=== PATIENT | female | born 1950 | race Caucasian/White ===

== ENCOUNTER → 2019-08-19 07:40 | Outpatient (BNVA) | payer MEDICARE, SELFPAY | PROVIDERS: Family Provider Family Medicine; PCP Family Medicine; Visit Provider Nurse Practitioner | DX: F33.2 Major depressive disorder, recurrent severe without psychotic features (principal) | CPT/HCPCS: 99214 ==

== ENCOUNTER → 2020-07-13 07:32 | Outpatient (BNVA) | payer MEDICARE, SELFPAY | PROVIDERS: Family Provider Family Medicine; PCP Family Medicine; Visit Provider Nurse Practitioner | DX: F33.2 Major depressive disorder, recurrent severe without psychotic features (principal); G25.81 Restless legs syndrome; F17.210 Nicotine dependence, cigarettes, uncomplicated | CPT/HCPCS: 99214 ==

== ENCOUNTER 2020-11-16 08:41 | Outpatient (CLI) | payer MEDICARE, SELFPAY ==
--- NOTE | 2020-11-16 08:51 | MM_ITS ---
WS: [id number] Bilateral screening digital mammogram, 11/16/2020 Clinical Data: SCREENING Comparison: 06/03/2008, 06/10/2007. Findings: The breast parenchymal pattern shows heterogeneous density No spiculated masses or clustered calcific ations are seen. There are no secondary signs of carcinoma. MM/[place] [id number] Impression: 1. Negative bilateral mammogram unchanged. 2. Recommend annual screening mammograms. BIRADS: 1-Negative FOLLOW UP: 1 Year Follow-up The CAD wrap checker was used.
== END 2020-11-16 08:42 | disposition home or self-care (01) ==
LOC: RADSHAW 08:47
PROVIDERS: PCP Family Medicine; Visit Provider Family Medicine
DX: Z12.31 Encounter for screening mammogram for malignant neoplasm of breast (principal)
CPT/HCPCS: 77067

== ENCOUNTER → 2021-06-07 08:37 | Outpatient (BNVA) | payer MEDICARE, SELFPAY | PROVIDERS: PCP Family Medicine; Visit Provider Nurse Practitioner | DX: F10.21 Alcohol dependence, in remission (principal); F33.2 Major depressive disorder, recurrent severe without psychotic features; G25.81 Restless legs syndrome; F17.210 Nicotine dependence, cigarettes, uncomplicated | CPT/HCPCS: 99214 ==

== ENCOUNTER 2021-06-16 00:48 | Emergency (ER) | payer MEDICARE, SELFPAY ==
[2021-06-16 00:50] VITALS: PULSE 70; RESP 18; TEMP 36.7; O2SAT 97; BMI 17.2
--- NOTE | 2021-06-16 00:50 | ECG_ITS ---
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 Measurements Intervals [facility] Rate: 71 P: 83 VT: 150 QRS: 24 QRSD: 94 T: 74 QT: 351 QTc: 383 Interpretive Statements SINUS RHYTHM POSSIBLE LEFT ATRIAL ENLARGEMENT [-0.1mV P-WAVE IN V1/V2] INCOMPLETE RIGHT BUNDLE BRANCH BLOCK [90+ ms QRS DURATION, TERMINAL R IN V1/V2, 40+ ms S IN I/aVL/V4/V5/V6] NONSPECIFIC T-WAVE ABNORMALITY No previous ECG available for comparison Electronically Signed On 06-16-2021 10:55:47 CDT by Paul Ravi M.D. [email or web address]
--- NOTE | 2021-06-16 00:50 | XRR_ITS ---
PROCEDURE INFORMATION: Exam: XR Chest Exam date and time: 06/16/2021 12:58 AM Age: 71 years old Clinical indication: Other: Syncope; Patient HX: Syncopal episode. C/O general fatigue TECHNIQUE: Imaging protocol: XR of the chest. Views: 1 view. COMPARISON: CT Abdomen/Pelvis [facility] [id number] 11/02/2015 9:38 AM FINDINGS: Lungs: Emphysematous lung changes. Negative for space consolidation. Pleural spaces: Unremarkable. No pleural effusion. No pneumothorax. Heart/Mediastinum: Unremarkable. No cardiomegaly. Bones/joints: Unremarkable. XR/XR chest 1V portable [id number] IMPRESSION: Negative exam. No acute chest abnormality identified.
[2021-06-16 00:57] LABS: Basophils % 0.6 %; Eosinophils # 0.1 10^3/uL (0.0-0.8); Eosinophils % 1.6 %; Hematocrit 40.3 % (37.0-47.0); Hemoglobin 12.1 g/dL (11.5-15.3); Lymphocytes # 1.7 10^3/uL (0.8-4.8); Lymphocytes % 23.7 %; Mean Corpuscular Hemoglobin 32.1 pg (28.0-34.0); Mean Corpuscular Volume 106.9 fl (81-99); Mean Platelet Volume 12.3 fL (7.4-10.4); Monocytes # 0.5 10^3/uL (0.2-0.9); Monocytes % 6.8 %; Neutrophils # 4.75 10^3/uL (1.8-7.7); Nucleated Red Blood Cells % 0 %; Platelet Count 97 10^3/cmm (130-400); Red Blood Count 3.77 10^6/uL (4.1-5.3); White Blood Count 7.1 10^3/uL (4.0-10.0)
[2021-06-16 00:58] VITALS: BP 167/83; PULSE 72; RESP 20; O2SAT 98
--- NOTE | 2021-06-16 00:59 | ED_ITS ---
HPI - Syncope General: Chief Complaint: Syncope Stated Complaint: SYNCOPAL EPISODE Time Seen by Provider: 06/16/21 00:49 Source: patient and EMS Mode of arrival: EMS Limitations: no limitations History of Present Illness: 71-year-old female states that she got her COVID shot yesterday and states that since then she been having some body aches and not feeling well. States that she had gotten up multiple times tonight last time she got up she felt dizzy and fell like she cannot pass out and then did fall and hit her chin on the ground she states she never passed out states that she is just felt weak she denies any fevers denies any chest pain denies any shortness of breath Associated symptoms: Deny abdominal pain, chest pain, fever(s), headache(s) or nausea Review of Systems Const: Denies: fever(s), chills, body aches or change in appetite Eyes: Denies: blurry vision or eye discomfort ENMT: Denies: throat pain or dental pain Card: Denies: chest pain Resp: Denies: dyspnea GI: Denies: abdominal pain, nausea, vomiting or diarrhea : Denies: dysuria Musc: Denies: neck pain or back pain Skin/Breast: Denies: rash Neuro: Denies: headache(s) Psych: Denies: depression Logan/Lymph: Denies: easy bruising All/Imm: Denies: urticaria PFS ED PFSH: Medical History Alcohol dependence, in remission Major depressive disorder, recurrent severe without psychotic features Nicotine dependence, cigarettes, uncomplicated Restless legs syndrome Physical Exam Const: COMMON NORMALS: no acute distress, patient oriented x3 and healthy appearing HENMT: COMMON NORMALS: normocephalic and atraumatic HEAD & SCALP: normocephalic and atraumatic Eye: COMMON NORMALS: Equal, round and reactive pupils present and EOMs intact bilaterally PUPIL: Yes Equal, round and reactive pupils present Neck/C-Spine: COMMON NORMALS: full ROM and supple Chest: COMMONS NORMALS: normal inspection of the chest and normal palpation of entire chest wall Resp: COMMON NORMALS: normal respiratory effort, No retractions, No use of accessory muscles and clear to auscultation bilaterally AUSCULTATION: clear to auscultation bilaterally Cardio: COMMON NORMALS: regular rate, regular rhythm and No murmurs present (Cardio) RATE: regular rate RHYTHM: regular rhythm GI: COMMON NORMALS: Normal to inspection, nondistended, normoactive bowel sounds present, Soft to palpation, non-tender and no masses PALPATION: Yes Soft to palpation Extremity: COMMON NORMALS: normal to inspection and full ROM Neuro: COMMON NORMALS: patient oriented x3, moves all extremities and no focal motor deficits Psych: COMMON NORMALS: mental status grossly normal, Normal thought process present and cooperative THOUGHT PROCESS: Normal thought process present Skin: COMMON NORMALS: no rashes or lesions noted and no wounds GENERAL SKIN EXAM: no rashes or lesions noted Course Vital Signs: Vital signs: Vital Signs Temperature 98.1 F 06/16/21 00:50 Pulse Rate 72 06/16/21 01:58 Respiratory Rate 18 06/16/21 01:58 Blood Pressure 158/76 06/16/21 01:58 Pulse Oximetry 98 06/16/21 01:58 MDM - Syncope Medical Decision Making Patient presents here with a syncopal event. Patient feels much improved here i s can be related to her recent vaccine she is no signs of pulmonary embolism she had no chest pain she did hit her chin had a mild head pain her CT head is normal blood works normal she is follow-up with PCP and return if worsening she understands agrees plan. Lab Data : 06/16/21 00:50 06/16/21 00:50 Radiology Impressions Chest X-Ray 06/16/21 00:50 IMPRESSION: Negative exam. No acute chest abnormality identified. Head CT 06/16/21 02:08 IMPRESSION: No acute intracranial findings. Laboratory Results WBC 7.1 10^3/uL (4.0-10.0) 06/16/21 00:50 RBC 3.77 10^6/uL (4.1-5.3) L 06/16/21 00:50 Hgb 12.1 g/dL (11.5-15.3) 06/16/21 00:50 Hct 40.3 % (37.0-47.0) 06/16/21 00:50 MCV 106.9 fl (81-99) H 06/16/21 00:50 MCH 32.1 pg (28.0-34.0) 06/16/21 00:50 MCHC 30.0 g/dL (30.0-36.0) 06/16/21 00:50 RDW 13.0 % (12.1-15.1) 06/16/21 00:50 Plt Count 97 10^3/cmm (130-400) L 06/16/21 00:50 MPV 12.3 fL (7.4-10.4) H 06/16/21 00:50 Neut % (Auto) 67.0 % 06/16/21 00:50 Lymph % (Auto) 23.7 % 06/16/21 00:50 [place] % (Auto) 6.8 % 06/16/21 00:50 Eos % (Auto) 1.6 % 06/16/21 00:50 Baso % (Auto) 0.6 % 06/16/21 00:50 Neut # (Auto) 4.75 10^3/uL (1.8-7.7) 06/16/21 00:50 Lymph # (Auto) 1.7 10^3/uL (0.8-4.8) 06/16/21 00:50 [place] # (Auto) 0.5 10^3/uL (0.2-0.9) 06/16/21 00:50 Eos # (Auto) 0.1 10^3/uL (0.0-0.8) 06/16/21 00:50 Baso # (Auto) 0.0 10^3/uL (0.0-0.1) 06/16/21 00:50 Nucleated RBC % (auto) 0 % 06/16/21 00:50 Nucleated RBCs # 0.0 /100WBC 06/16/21 00:50 Sodium 139 mmol/L (136-145) 06/16/21 00:50 Potassium 3.7 mmol/L (3.5-5.1) 06/16/21 00:50 Chloride 108 mmol/L (98-107) H 06/16/21 00:50 Carbon Dioxide 22 mmol/L (22-29) 06/16/21 00:50 Anion Gap 12.7 (5-19) 06/16/21 00:50 BUN 12 mg/dL (8-23) 06/16/21 00:50 Creatinine 1.1 mg/dL (0.5-0.9) H 06/16/21 00:50 GFR Calculation Not Reportable 06/16/21 00:50 Glucose 118 mg/dL (65-115) H 06/16/21 00:50 Calculated Osmolality 289 mOsm/kg (285-295) 06/16/21 00:50 Calcium 9.0 mg/dL (8.5-10.5) 06/16/21 00:50 Total Bilirubin 0.2 mg/dL (0.15-1.2) 06/16/21 00:50 AST 18 U/L (0-32) 06/16/21 00:50 ALT 10 U/L (0-33) 06/16/21 00:50 Alkaline Phosphatase 92 IU/L (35-105) 06/16/21 00:50 Total Protein 5.7 g/dL (6.6-8.7) L 06/16/21 00:50 Albumin 4.0 g/dL (3.5-5.2) 06/16/21 00:50 Globulin 1.7 g/dL (1.3-4.6) 06/16/21 00:50 Ethyl Alcohol < 10 mg/dL (0-10) 06/16/21 00:50 EKG Data EKG 1: I personally reviewed and interpreted this EKG as follows: EKG interpretation date: 06/16/21 EKG interpretation time: 01:02 Interpretation: nsr hr [address] or t wve abnormalities qrs 94 qtc 374 Discharge Plan Discharge Patient Disposition: Home Clinical Impression: Syncope Qualifiers: Syncope type: unspecified Qualified Code(s): R55 - Syncope and collapse Condition: Stable Prescriptions: No Action bupropion HCl [Wellbutrin XL] 150 mg tablet extended release 24 hr 150 mg PO QAM Qty: 90 1RF bupropion HCl [Wellbutrin XL] 300 mg tablet extended release 24 hr 300 mg PO QAM Qty: 90 1RF ropinirole 3 mg tablet 3 mg PO .HS Qty: 90 0RF trazodone 300 mg tablet 300 mg PO .HS Qty: 90 1RF Discharge Orders: Discharge ED (Routine); Ordered 06/16/21 Ordered By: Ching Mata Referrals: Madeline Alvarado MD [Primary Care Provider] - 1-3 days Discharge Diet: Advance as tolerated Discharge Activity: Resume usual activity Patient Instructions: Syncope (ED) Coding Level of Care Code ED Fat Purification Worker for Chg Fwd Exam Comprehensive
--- NOTE | 2021-06-16 01:20 | PC.NURSE ---
Pt on arrival has NS 1L infusing IV. Dr Mata updated and will not be hanging liter of fluid ordered by him.
[2021-06-16 01:22] LABS: Alanine Aminotransferase 10 U/L (0-33); Alkaline Phosphatase 92 IU/L (35-105); Aspartate Amino Transferase 18 U/L (0-32); Blood Urea Nitrogen 12 mg/dL (8-23); Carbon Dioxide 22 mmol/L (22-29); Chloride 108 mmol/L (98-107); Globulin 1.7 g/dL (1.3-4.6); Glucose 118 mg/dL (65-115); Osmolality Calculated 289 mOsm/kg (285-295); Sodium 139 mmol/L (136-145); Total Bilirubin 0.2 mg/dL (0.15-1.2); Total Protein 5.7 g/dL (6.6-8.7)
[2021-06-16 01:26] LABS: Alcohol Level < 10 mg/dL (0-10); Anion Gap 12.7 (5-19); Potassium 3.7 mmol/L (3.5-5.1)
[2021-06-16 01:28] VITALS: BP 168/83; PULSE 75; RESP 18; O2SAT 98
[2021-06-16 01:58] VITALS: BP 158/76; PULSE 72; RESP 18; O2SAT 98
--- NOTE | 2021-06-16 02:08 | CTR_ITS ---
PROCEDURE INFORMATION: Exam: CT Head Without Contrast Exam date and time: 06/16/2021 2:20 AM Age: 71 years old Clinical indication: Injury or trauma; Blunt trauma (contusions or hematomas); Patient HX: states that patient struck head during syncopal episode this a. M. At home. Also states patient has had multiple falls in the last month. Patient does not remember hitting head. ; Additional info: Fall/trauma TECHNIQUE: Imaging protocol: Computed tomography of the head without contrast. Radiation optimization: All CT scans at this facility use at least one of these dose optimization techniques: automated exposure control; mA and/or kV adjustment per patient size (includes targeted exams where dose is matched to clinical indication); or iterative reconstruction. COMPARISON: US ROR carotid duplex BI 08/25/2020 8:11 AM RADIATION DOSE METRICS: Total DLP (mGy-cm): 783.27 FINDINGS: Brain: Mild to moderate cerebral atrophy and ischemic leukoencephalopathy. Cerebral ventricles: No ventriculomegaly. Paranasal sinuses: Visualized sinuses are unremarkable. No fluid levels. Mastoid air cells: Visualized mastoid air cells are well aerated. Vasculature: Severe calcified intracranial atherosclerotic vessel disease. Bones/joints: Unremarkable. No acute fracture. Soft tissues: Unremarkable. CT/CT head wo con* [id number] IMPRESSION: No acute intracranial findings.
--- NOTE | 2021-06-16 02:08 | PC.NURSE ---
IV NS completed infusion with total in 1000ml. Fluids had been started prior to arrival by EMS.
[2021-06-16 02:30] VITALS: BP 153/75; PULSE 71; RESP 18; O2SAT 98
--- NOTE | 2021-06-16 02:31 | PC.NURSE ---
Pt ambulated to bathroom steadily without issues. Pt reports no dizziness at this time
[2021-06-16 03:00] VITALS: BP 166/100; PULSE 71; RESP 18; O2SAT 97
== END 2021-06-16 03:00 | disposition home or self-care (01) ==
PROVIDERS: Emergency Provider Emergency Medicine; PCP Family Medicine
DX: R55 Syncope and collapse (principal); S09.90XA Unspecified injury of head, initial encounter; W19.XXXA Unspecified fall, initial encounter; R51.9 Headache, unspecified
CPT/HCPCS: 70450; 71045; 80053; 80307; 85025; 93005; 99284

== ENCOUNTER → 2021-07-29 08:13 | Outpatient (BNVA) | payer MEDICARE, SELFPAY | PROVIDERS: PCP Family Medicine; Referring Provider Family Medicine; Visit Provider Nurse Practitioner | DX: R56.9 Unspecified convulsions (principal) | CPT/HCPCS: 99204 ==

== ENCOUNTER → 2021-08-18 12:54 | Outpatient (BNVA) | payer MEDICARE, SELFPAY | PROVIDERS: PCP Family Medicine; Visit Provider Specialist | DX: R56.9 Unspecified convulsions (principal) | CPT/HCPCS: 95816 ==

== ENCOUNTER 2023-09-06 09:00 | Outpatient (CLI) | payer MEDICARE, SELFPAY ==
--- NOTE | 2023-09-06 08:43 | MM_ITS ---
WS: [id number] BILATERAL SCREENING DIGITAL TOMOSYNTHESIS MAMMOGRAM WITH CAD HISTORY: SCREENING COMPARISON: 11/16/2020 Bilateral CC and MLO views with tomosynthesis and synthetic mammography submitted. Computer aided det ection analyzed. Breast composition: There are scattered areas of fibroglandular density. No suspicious masses, microc alcifications or architectural distortion. Benign scattered calcifications and breast arterial calcif ications. MM/[place] [id number] IMPRESSION: BI-RADS: 2-Benign FOLLOW UP: 1 Year Follow-up
== END 2023-09-06 09:01 | disposition home or self-care (01) ==
PROVIDERS: PCP Family Medicine; Visit Provider Family Medicine
DX: Z12.31 Encounter for screening mammogram for malignant neoplasm of breast (principal); R92.323 Mammographic fibroglandular density, bilateral breasts; R92.1 Mammographic calcification found on diagnostic imaging of breast
CPT/HCPCS: 77063; 77067

== ENCOUNTER → 2023-10-22 09:54 | Outpatient (BNVA) | payer MEDICARE, SELFPAY | PROVIDERS: PCP Family Medicine; Visit Provider Podiatrist Foot & Ankle Surgery | DX: M79.671 Pain in right foot (principal); M21.621 Bunionette of right foot | CPT/HCPCS: 73630; 99203 ==

== ENCOUNTER → 2024-07-01 08:34 | Outpatient (BNVA) | payer MEDICARE, SELFPAY | PROVIDERS: PCP Family Medicine; Visit Provider Podiatrist Foot & Ankle Surgery | DX: M21.621 Bunionette of right foot (principal); Q82.8 Other specified congenital malformations of skin | CPT/HCPCS: 17110; 99214 ==